=== PATIENT | female | born 1980 | race Caucasian/White ===

== ENCOUNTER → 2016-09-13 | Outpatient (CLI) | payer MEDICARE, OTHER ==
[~2016-09-13] MED LIST: ABILIFY PO; ABILIFY20 MG PO; AMOXICILLIN PO; BACLOFEN10 MG PO; BACLOFEN20 MG PO; BACTRIM DS TABL1 TA1 PO; BACTRIM DS TABL1 TAB PO; BUTISOL SODIUM30 MG PO; CETIRIZINE HCL10 MG PO; COMPAZINE5 MG PO; CYMBALTA PO; DEPAKOTE ER PO; DESYREL50 MG PO; DITROPAN PO; DITROPAN XL PO; FLECAINIDE ACET50 MG PO; GAS RELIEF OTC; HYDROCODONE/APA1 T16 PO; LEVOXYL125 MCG PO; LOPRESSOR PO; NAPROXEN375 MG PO; NEURONTIN PO; PANTOPRAZOLE SO40 MG PO; PREVACID PO; SYNTHROID PO; TIZANIDINE HCL2 MG PO; TOPAMAX PO; TRAZODONE PO; TRILEPTAL PO; VICODIN 5/500 T1 TAB PO; VISTARIL PO; ZITHROMAX PO; ZYRTEC PO
--- NOTE | ~2016-09-13 | US5 ---
[facility] A Service of [facility] RADIOLOGY TEXT RESULTS PATIENT: EDIE VOGEL LOCATION: [facility] : [birth year] UNIT #: [id number] AGE: [address]: ARISTIDES MCCALL MD SEX: F ORDER DR: [id number] [facility] [address]. [place], [place] [address] [id number] O MR#: [id number] Acc #: [id number] NAME: EDIE VOGEL : 1980 SEX: F STUDY DATE/TIME: 09/13/2016 8:29 UNIT: [facility] ROOM: STUDY DESCRIPTION: US Abdominal Complete Attending Physician: Aristides Mccall M.D. Referring Physician: Aristides Mccall M.D. Ordering Physician: Aristides Mccall M.D. Primary Care Physician: Aristides Mccall M.D. MEDICAL IMAGING REPORT This report is preliminary unless electronic signature is present EXAM Abdominal ultrasound INDICATIONS Elevated liver enzyme levels. Generalized abdominal pain. Elevated liver enzyme levels for the past month. PROCEDURE Rogers-scale and Doppler imaging of the abdomen. COMPARISON None. FINDINGS Visualized portions of pancreas are unremarkable. Common duct measures up to 7 mm. Liver measures 13 cm in length. The right kidney measures 8.9 cm. Submitted images of the abdominal aorta and inferior vena cava are unremarkable. Left kidney measures 8.8 cm and is normal. Spleen measures 8.7 cm. IMPRESSION Prominence of the common duct. The gallbladder is not seen on the study and presumed surgically absent. This may simply represent postcholecystectomy change. Correlate with the patient's laboratory values. If there is concern for biliary obstruction an MRCP or ERCP may be helpful. Dictated by... Yamil Dowling M.D. THIS IS AN ELECTRONICALLY VERIFIED REPORT Yamil Dowling M.D. at 09/13/2016 5:05 PM SOL/rehana [facility] A Service of [facility] RADIOLOGY TEXT RESULTS PATIENT: EDIE VOGEL LOCATION: [facility] : [birth year] UNIT #: [id number] AGE: [address]: ARISTIDES MCCALL MD SEX: F ORDER DR: TD: 09/13/2016 10:12 JOB #: [id number] MEDICAL IMAGING REPORT Page 1 of 1 COPY
== END | disposition home or self-care (01) ==
LOC: CWCC 08:01
DX: R79.89 Other specified abnormal findings of blood chemistry (principal)
CPT/HCPCS: 76700

== ENCOUNTER → 2016-10-14 | Day surgery (SDC) | payer MEDICARE, OTHER ==
--- NOTE | ~2016-10-14 | OR ---
Unit #: [id number] #: [id number] Patient: EDIE VOGEL [id number] [place] [id number] O MR#: [id number] NAME: EDIE VOGEL ROOM: Date of Procedure: 10/14/2016 Admission Date: 10/14/2016 Surgeon: Gregory Salinas M.D. : 1980 Attending Physician: Gregory Salinas M.D. Primary Care Physician: Pancho Mccall M.D. OPERATIVE REPORT PREOPERATIVE DIAGNOSES Postprandial dyspepsia, retrosternal ascending heartburn, epigastric pain, and early satiety. The patient has no weight loss and her appetite is in fact excellent. PROCEDURES PERFORMED Upper gastrointestinal endoscopy and biopsy. POSTOPERATIVE DIAGNOSES 1. The patient had mild prepyloric antral erosive gastritis. This was in the form of linear erythematous streaks in the antral area. 2. 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 This was in the form of tongues of columnar mucosa ascending above the gastroesophageal junction. 3. Rest of the examination up to the third part of the duodenum was normal. A biopsy was obtained from the antrum for CLOtest. In addition, biopsies were also obtained from the distal esophageal mucosa to look for any evidence of incomplete intestinal metaplasia of Gottlieb esophagus. SEDATION USED MAC. DESCRIPTION OF PROCEDURE Following detailed explanation of potential risks and complications of an upper endoscopy, namely perforation, bleeding, and complications related to sedation, the patient was brought to GI lab and laid in the left lateral decubitus position. Lubricated tip of the Olympus video upper endoscope was passed through the bite block into the proximal esophagus under direct vision. The entire esophageal mucosa was examined. The patient was noted to have tongues of columnar mucosa ascending above the gastroesophageal junction. The scope was then advanced into the gastric cavity and the latter was insufflated. Mucosa of the fundus, body, and antrum was examined and the patient was noted to have mild prepyloric antral erythema and erosions indicating antral gastritis. Pylorus was intubated with visualization of the normal duodenal bulb and second and third part of the duodenum. Upon withdrawal and retroflexion, the incisura, cardia, and greater curve were examined and a biopsy was obtained from the antrum for CLOtest. The scope was then withdrawn into the distal esophagus. Multiple biopsies were obtained. Biopsies were obtained from the distal esophageal mucosa from the Gottlieb segment and sent for histology. The entire esophageal mucosa was examined all the way up to pharynx and no additional findings were noted. The patient Unit #: [id number] #: [id number] Patient: EDIE VOGEL tolerated the procedure without any postprocedure complications. Dictated by... Aurora Marroquin/carolynn TD: 10/14/2016 13:24 JOB #: [id number] OPERATIVE REPORT Page 1 of 1 X Gregory Salinas MD X PROCEDURE OPERATIVE NOTE
== END | disposition home or self-care (01) ==
LOC: COPS 08:04
DX: K21.0 Gastro-esophageal reflux disease with esophagitis (principal); K29.00 Acute gastritis without bleeding; I37.0 Nonrheumatic pulmonary valve stenosis; I34.0 Nonrheumatic mitral (valve) insufficiency; G89.29 Other chronic pain; E03.9 Hypothyroidism, unspecified; K21.9 Gastro-esophageal reflux disease without esophagitis; Z88.1 Allergy status to other antibiotic agents; Z88.8 Allergy status to other drugs, medicaments and biological substances; Z79.891 Long term (current) use of opiate analgesic; Z79.899 Other long term (current) drug therapy; Z86.73 Personal history of transient ischemic attack (TIA), and cerebral infarction without residual deficits
CPT/HCPCS: 84703; 87077; 88305

== ENCOUNTER 2017-01-13 09:10 | Emergency (ER) | payer MEDICARE, OTHER ==
[2017-01-13 10:34] LABS: BASOPHIL# 0.1 X10e3 (0-0.3); BASOPHIL% 0.5 % (0-2.5); EOSINOPHIL# 0.1 X10e3 (0-0.7); HEMATOCRIT 41.4 % (35.0-45.0); HEMOGLOBIN 13.5 gm/dL (12.0-16.0); LYMPHOCYTE# 1.3 X10e3 (1.0-3.5); LYMPHOCYTE% 10.6 % (17.0-45.0); MEAN CELL VOLUME 89.1 FL (83-96); MEAN CORPUSCULAR HGB CONC 32.5 g/dL (30-36); MEAN PLATELET VOLUME 9.1 FL (6.5-11.5); MONOCYTE# 1.2 X10e3 (0-1.0); NEUTROPHIL# 9.3 X10e3 (1.5-7.1); NEUTROPHIL% 77.9 % (40-75); PLATELET COUNT 153 X10e3 (140-420); RED BLOOD COUNT 4.65 X10e (3.90-5.30); RED CELL DISTRIBUTION WIDTH 13.4 % (11.0-15.5)
[2017-01-13 10:41] LABS: URINE APPEARANCE CLOUDY; URINE BILIRUBIN NEG (NEG); URINE BLOOD TRACE (NEG); URINE COLOR YELLOW; URINE GLUCOSE NEG (NEG); URINE KETONE NEG (NEG); URINE LEUKOCYTE ESTERASE 2+ (NEG); URINE NITRATE POS (NEG); URINE PROTEIN NEG (NEG); URINE SPECIFIC GRAVITY 1.019 (1.003-1.035)
[2017-01-13 10:41] LABS: DIFF IND NO
[2017-01-13 10:46] LABS: CULTURE INDICATED? YES; URBCS1 AUWI 0-2 /[HPF] (0-2); URINE BACTERIA AUWI 4+ (NEGATIVE); URINE SQUAMOUS EPITHELIAL CELL NONE SEEN /[HPF]; UWBCS1 AUWI 50-100 (0-5)
[2017-01-13 11:08] LABS: ALBUMIN SERUM 3.7 g/dL (3.5-5.0); BILIRUBIN, DIRECT 0.1 mg/dL (0.0-0.2); BILIRUBIN,INDIRECT 0.3 mg/dL (0.0-0.9); BILIRUBIN,TOTAL 0.4 mg/dL (0.2-2.0); CALCIUM SERUM 8.9 mg/dL (8.4-10.2); CREATININE SERUM 0.5 mg/dL (0.6-1.4); GLOM FILT RATE Estimated 125.4 mL/min (>60); PROTEIN TOTAL SERUM 6.6 g/dL (6.0-8.3)
[2017-01-13 11:21] LABS: URINE SOURCE CATH
[2017-01-13 11:22] LABS: URINE MUCUS PRESENT
== END 2017-01-13 12:50 | disposition home or self-care (01) ==
LOC: CED 09:10
DX: R79.89 Other specified abnormal findings of blood chemistry (principal); K21.9 Gastro-esophageal reflux disease without esophagitis; Z90.49 Acquired absence of other specified parts of digestive tract; Z88.8 Allergy status to other drugs, medicaments and biological substances; Z91.040 Latex allergy status; Z88.1 Allergy status to other antibiotic agents
CPT/HCPCS: 36415; 51701; 80048; 80076; 81003; 82140; 83690; 84703; 85025; 87086; 87088; 87186; 96365; 99283; G0480; J0696

== ENCOUNTER → 2017-02-19 | Outpatient (CLI) | payer MEDICARE, OTHER ==
--- NOTE | ~2017-02-19 | CR173 ---
[facility] A Service [facility] RADIOLOGY TEXT RESULTS PATIENT: EDIE VOGEL LOCATION: [facility] : [birth year] UNIT #: [id number] AGE: [address]: ARISTIDES CORTES MD SEX: F ORDER DR: [id number] [address] [address] [id number] O MR#: [id number] Acc #: [id number] NAME: EDIE VOGEL : 1980 SEX: F STUDY DATE/TIME: 02/19/2017 9:49 UNIT: [facility] ROOM: STUDY DESCRIPTION: CR Knee 3 Views Rt Attending Physician: Aristides Cortes M.D. Referring Physician: Aristides Cortes M.D. Ordering Physician: Aristides Cortes M.D. Primary Care Physician: Aristides Cortes M.D. MEDICAL IMAGING REPORT This report is preliminary unless electronic signature is present EXAMINATION Three views of the right knee. DATE 02/19/2017 HISTORY 36-year-old female with right knee pain and swelling for 1 week. No known injury. COMPARISON None. FINDINGS No fracture. No dislocation. No significant osteoarthritic change. No osteolytic or osteoblastic abnormality. No retained radiopaque foreign body. IMPRESSION Normal 3 views of the right knee. Dictated by... Disha Mccarthy M.D. THIS IS AN ELECTRONICALLY VERIFIED REPORT Disha Mccarthy M.D. at 02/20/2017 12:27 PM SACHI/hilaria TD: 02/19/2017 16:26 JOB #: [id number] MEDICAL IMAGING REPORT [facility] A [facility] RADIOLOGY TEXT RESULTS PATIENT: EDIE VOGEL LOCATION: [facility] : 82 UNIT #: [id number] AGE: [address]: ARISTIDES CORTES MD SEX: F ORDER DR: Page 1 of 1 COPY
== END | disposition home or self-care (01) ==
LOC: CRAD 09:09
DX: M25.561 Pain in right knee (principal)
CPT/HCPCS: 73562